=== PATIENT | male | born 1965 | race Caucasian/White ===

== ENCOUNTER 2018-11-13 09:28 | Emergency (ER) | payer OTHER ==
[~2018-11-13] VITALS: Ht 172.7 cm; Wt 90.9 kg
[~2018-11-13 09:28] MED LIST: GARLIC PO; MULTIVITAMIN PO; VITAMIN C PO
[2018-11-13 09:44] VITALS: BP 146/94
[2018-11-13] MEDS ORDERED: HYDROcodone/APAP 5/325 TABLET PO ONE (10:30)
[2018-11-13] MEDS ORDERED: HYDROcodone/APAP 5/325 TABLET ONE (10:32)
== END 2018-11-13 11:00 | disposition home or self-care (01) ==
LOC: ED 10:14
DX: S52.501D Unspecified fracture of the lower end of right radius, subsequent encounter for closed fracture with routine healing (principal); Z87.891 Personal history of nicotine dependence
CPT/HCPCS: 99283